=== PATIENT | female | born 1980 | race Caucasian/White ===

== ENCOUNTER 2018-03-14 18:29 | Emergency (ER) | payer BC ==
[2018-03-14] MEDS ORDERED: Lidocaine 2% Viscous Solution 15 ML Cup PO ONE (18:49)
[2018-03-14] MEDS ORDERED: Benzocaine 20% Topical Spray UD MUCMEM ONE (18:49)
--- NOTE | 2018-03-14 19:16 | EDM.PDOC ---
ED HPI GENERAL MEDICAL PROBLEM - General Chief Complaint: ENT Problem Stated Complaint: TOOTH PAIN Time Seen by Provider: 03/14/18 18:32 Source of Information: Reports: Patient History Limitations: Reports: No Limitations - History of Present Illness INITIAL COMMENTS - FREE TEXT/NARRATIVE: HISTORY AND PHYSICAL: History of present illness: [Margi is a 37-year-old female here for dental pain. She states she started having pain of her right upper teeth last night. This morning woke up with swelling to the right side of her face. She denies any fever or chills. ] Review of systems: As per history of present illness and below otherwise all systems reviewed and negative. Past medical history: As per history of present illness and as reviewed below otherwise noncontributory. Surgical history: As per history of present illness and as reviewed below otherwise noncontributory. Social history: No reported history of drug or alcohol abuse. Family history: As per history of present illness and as reviewed below otherwise noncontributory. Physical exam: General: Sitting comfortably and in no acute distress HEENT: poor dentition noted throughout. There is a small abscess between the left upper bicuspid and 1st molar. Tender to palpation. Swelling of left cheek without erythema or warmth pupils reactive, negative for conjunctival pallor or scleral icterus, mucous membranes moist, throat clear, neck supple, nontender , trachea midline. Lungs: Clear to auscultation, breath sounds equal bilaterally, chest nontender. Heart: S1S2, regular, negative for clicks, rubs, or JVD Genitourinary: Deferred. Rectal: Deferred. Neuro: Awake, alert, oriented. Cranial nerves II through XII unremarkable. Cerebellum unremarkable. Motor and sensory unremarkable throughout. Exam nonfocal. Notes: Diagnostics: [CBC] Therapeutics: [Dental balls Toradol 60mg IM] Augmentin BID x 10 days Impression: [Dental pain/abscess] Plan: [#1 take antibiotic and use dental balls as instructed #2 follow up with PCP and dentist #3 return to ED as needed as instructed] Definitive disposition and diagnosis as appropriate pending reevaluation and review of above. left upper Pain Score (Numeric/FACES): 9 - Related Data Allergies Allergy/AdvReac Type Severity Reaction Status Date / Time No Known Allergies Allergy Verified 03/14/18 18:47 Home Meds: Home Meds Diclofenac Sodium [Voltaren] 75 mg PO BIDMEALS 03/14/18 [History] Sertraline [Zoloft] 25 mg PO DAILY 03/14/18 [History] Past Medical History Musculoskeletal History: Reports: Arthritis - Infectious Disease History Infectious Disease History: Reports: Chicken Pox - Past Surgical History GI Surgical History: Reports: Cholecystectomy Social & Family History - Family History Family Medical History: Noncontributory - Tobacco Use Smoking Status *Q: Current Every Day Smoker Years of Tobacco use: 22 Packs/Tins Daily: 0.5 - Alcohol Use Days Per Week of Alcohol Use: 3 Number of Drinks Per Day: 3 Total Drinks Per Week: 9 - Recreational Drug Use Recreational Drug Use: No ED ROS ENT - Review of Systems Review Of Systems: ROS reveals no pertinent complaints other than HPI. ED EXAM, ENT - Physical Exam Exam: See Below (see dictation) Course - Vital Signs Last Recorded V/S: Last Vital Signs Temp 37.2 C 03/14/18 18:48 Pulse 95 03/14/18 18:48 Resp 20 03/14/18 18:48 BP 125/73 03/14/18 18:48 Pulse Ox 97 03/14/18 18:48 - Orders/Labs/Meds Orders: Active Orders 24 hr Category Date Time Status Ketorolac [Toradol] Med 03/14/18 19:18 Once 60 mg IM ONETIME ONE Labs: Laboratory Tests 03/14/18 Range/Units 19:00 WBC 8.13 (4.0-11.0) K/uL RBC 4.27 L (4.30-5.90) M/uL Hgb 13.1 (12.0-16.0) g/dL Hct 38.7 (36.0-46.0) % MCV 90.6 (80.0-98.0) fL MCH 30.7 (27.0-32.0) pg MCHC 33.9 (31.0-37.0) g/dL RDW Std Deviation 45.8 (28.0-62.0) fl RDW Coeff of Fany 14 (11.0-15.0) % Plt Count 271 (150-400) K/uL MPV 9.60 (7.40-12.00) fL Neut % (Auto) 66.1 (48.0-80.0) % Lymph % (Auto) 20.2 (16.0-40.0) % [place] % (Auto) 11.6 (0.0-15.0) % Eos % (Auto) 1.7 (0.0-7.0) % Baso % (Auto) 0.4 (0.0-1.5) % Neut # (Auto) 5.4 (1.4-5.7) K/uL Lymph # (Auto) 1.6 (0.6-2.4) K/uL [place] # (Auto) 0.9 H (0.0-0.8) K/uL Eos # (Auto) 0.1 (0.0-0.7) K/uL Baso # (Auto) 0.0 (0.0-0.1) K/uL Nucleated RBC % 0.0 /100WBC Nucleated RBCs # 0 K/uL Meds: Medications Discontinued Medications Generic Name Dose Route Start Last Admin Trade Name Freq PRN Reason Stop Dose Admin Benzocaine 2 each 03/14/18 18:49 Hurricaine One 20% MUCMEM 03/14/18 18:50 ONETIME ONE Lidocaine HCl 15 ml 03/14/18 18:49 Xylocaine 2% Viscous PO 03/14/18 18:50 ONETIME ONE Departure - Departure Time of Disposition: 19:24 Disposition: Home, Self-Care 01 Condition: Good Clinical Impression: Dental abscess - Discharge Information Referrals: Светлана Terrell NP [Primary Care Provider] - Forms: ED Department Discharge Additional Instructions: The following information is given to patients seen in the emergency department who are being discharged to home. This information is to outline your options for follow-up care. We provide all patients seen in our emergency department with a follow-up referral. The need for follow-up, as well as the timing and circumstances, are variable depending upon the specifics of your emergency department visit. If you don't have a primary care physician on staff, we will provide you with a referral. We always advise you to contact your personal physician following an emergency department visit to inform them of the circumstance of the visit and for follow-up with them and/or the need for any referrals to a consulting specialist. The emergency department will also refer you to a specialist when appropriate. This referral assures that you have the opportunity for follow-up care with a specialist. All of these measure are taken in an effort to provide you with optimal care, which includes your follow-up. Under all circumstances we always encourage you to contact your private physician who remains a resource for coordinating your care. When calling for follow-up care, please make the office aware that this follow-up is from your recent emergency room visit. If for any reason you are refused follow-up, please contact the [facility] Emergency Department at and asked to speak to the emergency department charge nurse. [facility] [address] [place] [id number] #1 take antibiotic and use dental balls as instructed #2 follow up with PCP and dentist #3 return to ED as needed as instructed - My Orders Last 24 Hours: My Active Orders 03/14/18 19:18 Ketorolac [Toradol] 60 mg IM ONETIME ONE - Assessment/Plan Last 24 Hours: My Active Orders 03/14/18 19:18 Ketorolac [Toradol] 60 mg IM ONETIME ONE
[2018-03-14] MEDS ORDERED: Ketorolac 60 MG/2 ML SDV IM ONE (19:18)
[2018-03-14] MEDS ORDERED: Lidocaine 2% Viscous Solution 15 ML Cup ONE (19:40)
== END 2018-03-14 19:58 | disposition home or self-care (01) ==
LOC: MW.ED 18:29
DX: K04.7 Periapical abscess without sinus (principal); F17.210 Nicotine dependence, cigarettes, uncomplicated; Z79.899 Other long term (current) drug therapy
CPT/HCPCS: 36415; 85025; 96372; 99283; A9270; J1885

== ENCOUNTER 2020-03-16 05:27 | Emergency (ER) | payer SELFPAY ==
[2020-03-16] MEDS ORDERED: Loperamide 2 MG Cap PO ONE (06:02)
--- NOTE | 2020-03-16 06:02 | EDM.PDOC ---
ED HPI GENERAL MEDICAL PROBLEM - General Chief Complaint: Gastrointestinal Problem Stated Complaint: DIARRHEA, VOMITING, ABDOMINAL PAIN Time Seen by Provider: 03/16/20 05:28 Source of Information: Reports: Patient History Limitations: Reports: No Limitations - History of Present Illness INITIAL COMMENTS - FREE TEXT/NARRATIVE: 39-year-old female past medical history of depression and hypothyroidism presenting with nausea, vomiting, diarrhea, and abdominal pain. Symptoms present for the past 6 days. Reports multiple episodes of watery diarrhea, intermittent abdominal cramping that is worse when she is actively having diarrhea. Also reports nonbloody emesis. No sick contacts or recent travel. No fever or hematochezia or melena. Treating at home with Pepto-Bismol and took a dose of a azithromycin yesterday. - Related Data Allergies Allergy/AdvReac Type Severity Reaction Status Date / Time No Known Allergies Allergy Verified 03/14/18 18:47 Home Meds: Home Meds Diclofenac Sodium [Voltaren] 75 mg PO BIDMEALS 03/14/18 [History] Sertraline [Zoloft] 50 mg PO DAILY 03/14/18 [History] Ciprofloxacin [Ciprofloxacin HCl] 500 mg PO BID 5 Days #10 tab 03/16/20 [Rx] Levothyroxine Sodium [Synthroid] 25 mcg PO DAILY 03/16/20 [History] Past Medical History Musculoskeletal History: Reports: Arthritis Psychiatric History: Reports: Anxiety, Depression Endocrine/Metabolic History: Reports: Hypothyroidism - Infectious Disease History Infectious Disease History: Reports: Chicken Pox - Past Surgical History GI Surgical History: Reports: Cholecystectomy Social & Family History - Family History Family Medical History: Noncontributory - Tobacco Use Smoking Status *Q: Current Every Day Smoker Years of Tobacco use: 17 Packs/Tins Daily: 0.5 - Caffeine Use Caffeine Use: Reports: None - Recreational Drug Use Recreational Drug Use: No ED ROS GENERAL - Review of Systems Review Of Systems: See Below Constitutional: Denies: Fever, Chills HEENT: Reports: No Symptoms Respiratory: Denies: Shortness of Breath Cardiovascular: Denies: Chest Pain Endocrine: Reports: No Symptoms GI/Abdominal: Reports: Abdominal Pain, Diarrhea, Nausea, Vomiting. Denies: Black Stool, Bloody Stool, Constipation, Distension, Hematemesis, Hematochezia, Melena : Denies: Dysuria, Flank Pain, Hematuria Musculoskeletal: Denies: Back Pain Skin: Denies: Lesions Neurological: Denies: Headache ED EXAM, GI/ABD - Physical Exam Exam: See Below Text/Narrative:: Vital signs reviewed. Nursing notes reviewed. Constitutional: Awake, alert, non-distressed. Head: Normocephalic, atraumatic. Eyes: EOMI, conjunctiva normal, no discharge, no scleral icterus. Ears, Nose, Throat: External ears and nose normal, moist oral mucosa. Cardiovascular: 2+ radial pulse, capillary refill less than 2 seconds. Pulmonary: normal work of breathing, no accessory muscle use. Abdomen/GI: Soft, nontender, nondistended, no guarding or rigidity, no masses. Musculoskeletal: No deformities. Integumentary: Appropriate color for ethnicity, warm, dry, no pallor or jaundice, no rash. Neurologic: Alert, answering questions appropriately, normal speech, no facial droop, moving all extremities well. Psychiatric: Appropriate mood and affect, normal thought process. Course - Vital Signs Text/Narrative:: Patient hemodynamically stable, afebrile, well-appearing, looks nontoxic. Differential diagnosis includes but is not limited to: Viral gastroenteritis, infectious diarrhea, IBD, invasive diarrhea, electrolyte disturbance, volume depletion, bowel obstruction, medication side effect, etc. No red flag symptoms such as persistent abdominal pain, fever, abdominal distention, or immunosuppression. No recent camping history. Abdomen is soft and nontender. Given duration of symptoms we attempted trial of oral antibiotics. I do not see an indication for stool studies this point given that we have had less than 1 week of symptoms. Labs look reassuring. Patient looks well and nontoxic and is stable to discharge home. Recommended [id number] Imodium AD, plenty of fluids along with the antibiotics. We will have her follow-up with her primary medical doctor in [place] when she goes home in a couple of days. Plan: Patient is stable to discharge home with outpatient primary care follow- up. Strict emergency department return precautions were provided, patient indicated understanding. All questions were answered prior to departure. Discharged in good condition. Last Recorded V/S: Last Vital Signs Temp 36.9 C 03/16/20 05:38 Pulse 89 03/16/20 05:38 Resp 20 03/16/20 05:38 BP 121/86 03/16/20 05:38 Pulse Ox 97 03/16/20 05:38 - Orders/Labs/Meds Labs: Laboratory Tests 03/16/20 Range/Units 06:05 Sodium 135 L (136-145) mmol/L Potassium 3.5 (3.5-5.1) mmol/L Chloride 99 (98-107) mmol/L Carbon Dioxide 25.1 (21.0-32.0) mmol/L BUN 5 L (7.0-18.0) mg/dL Creatinine 0.9 (0.6-1.0) mg/dL Est Cr Clr Drug Dosing 74.77 mL/min Estimated GFR (MDRD) > 60.0 ml/min Glucose 114 H (74-106) mg/dL Calcium 8.8 (8.5-10.1) mg/dL Meds: Medications Discontinued Medications Generic Name Dose Route Start Last Admin Trade Name Freq PRN Reason Stop Dose Admin Loperamide HCl 2 mg 03/16/20 06:02 03/16/20 06:30 Imodium PO 03/16/20 06:03 2 mg ONETIME ONE Administration Departure - Departure Time of Disposition: 06:57 Disposition: Home, Self-Care 01 Condition: Good Clinical Impression: Acute diarrhea, Diarrhea - Discharge Information *PRESCRIPTION DRUG MONITORING PROGRAM REVIEWED*: Not Applicable *COPY OF PRESCRIPTION DRUG MONITORING REPORT IN PATIENT CHRISTELLE: Not Applicable Prescriptions: Ciprofloxacin [Ciprofloxacin HCl] 500 mg PO BID 5 Days #10 tab Instructions: Diarrhea, Adult Referrals: [facility] [Provider Group] - 1 Week (For follow-up of symptoms.) Forms: ED Department Discharge Additional Instructions: Thank you for choosing the [facility] emergency department in [place] for your medical needs today. It was a pleasure caring for you. You were seen in the emergency department for diarrhea and abdominal pain. I prescribed some antibiotics to the pharmacy, be sure you take these as directed. I also recommend you take Imodium which is available [id number], take this as directed. You should be drinking plenty of fluids. I would like for you to follow-up with your doctor in the next couple of days if you are not feeling better. Warning signs to return to ER include constant abdominal pain, rectal bleeding, bloody stools, or fever. Please return the emergency department immediately if your symptoms worsen or if you feel worse. The following information is given to patients seen in the emergency department who are being discharged. This information is to outline your options for follow-up care. We provide all patients seen in our emergency department with a follow-up referral. The need for follow-up, as well as the timing and circumstances, are variable depending upon the specifics of your emergency department visit. If you don't have a primary care physician on staff, we will provide you with a referral. We always advise you to contact your personal physician following an emergency department visit to inform them of the circumstance of the visit and for follow-up with them and/or the need for any referrals to a consulting specialist. The emergency department will also refer you to a specialist when appropriate. This referral assures that you have the opportunity for follow-up care with a specialist. All of these measure are taken in an effort to provide you with optimal care, which includes your follow-up. Under all circumstances we always encourage you to contact your private physician who remains a resource for coordinating your care. When calling for follow-up care, please make the office aware that this follow-up is from your recent emergency room visit. If for any reason you are refused follow-up, please contact the [facility] Emergency Department at and asked to speak to the emergency department charge nurse. If you do not have a primary care physician that is caring for you, you can contact these clinics below to set up an appointment to establish care: [facility] - [facility] [address] [place] [id number] [facility] [address] [place] [id number] Sepsis Event Note (ED) - Evaluation Sepsis Screening Result: No Definite Risk - Focused Exam Vital Signs: Vital Signs Temp Pulse Resp BP Pulse Ox 03/16/20 05:38 36.9 C 89 20 121/86 97
[2020-03-16 06:26] LABS: BLOOD UREA NITROGEN,BUN 5 mg/dL (7.0-18.0); CARBON DIOXIDE,CO2 25.1 mmol/L (21.0-32.0); CHLORIDE,CL 99 mmol/L (98-107); GLUCOSE RANDOM 114 mg/dL (74-106); POTASSIUM,K 3.5 mmol/L (3.5-5.1); SODIUM,NA 135 mmol/L (136-145)
== END 2020-03-16 07:15 | disposition home or self-care (01) ==
LOC: MW.ED 05:27
DX: R19.7 Diarrhea, unspecified (principal); F17.210 Nicotine dependence, cigarettes, uncomplicated; F41.9 Anxiety disorder, unspecified; F32.9 Major depressive disorder, single episode, unspecified; E03.9 Hypothyroidism, unspecified; Z79.899 Other long term (current) drug therapy
CPT/HCPCS: 36415; 80048; 99282; 99284; A9270-GY